=== PATIENT | male | born 1955 | race Caucasian/White ===

== ENCOUNTER 2016-11-05 08:50 | Emergency (ER) | payer MEDICARE ==
[2016-11-05 09:02] VITALS: BP 140/82
== END 2016-11-05 08:55 | disposition left against medical advice (07) ==
LOC: ED 08:50
DX: S21.109A Unspecified open wound of unspecified front wall of thorax without penetration into thoracic cavity, initial encounter (principal); Z53.21 Procedure and treatment not carried out due to patient leaving prior to being seen by health care provider; X58.XXXA Exposure to other specified factors, initial encounter; Y93.89 Activity, other specified; Y92.89 Other specified places as the place of occurrence of the external cause; Y99.8 Other external cause status

== ENCOUNTER 2017-10-06 08:37 | Emergency (ER) | payer MEDICARE ==
[2017-10-06 09:03] VITALS: BP 118/82
[2017-10-06 09:28] LABS: Basophils % (Auto) 0.4 % (0.0-1.8); Eosinophils # (Auto) 0.1 K/mm3 (0.0-0.4); Hematocrit 42.6 % (35.5-45.6); Lymphocytes # (Auto) 1.5 K/mm3 (1.2-5.4); Mean Corpuscular HGB Conc 33 % (32-34); Mean Corpuscular Hemoglobin 28 pg (28-32); Mean Corpuscular Volume 84 fl (84-94); Monocytes # (Auto) 0.6 K/mm3 (0.0-0.8); Platelet Count 293 K/mm3 (140-440)
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
[2017-10-06 09:41] LABS: BUN/Creatinine Ratio 17; Blood Urea Nitrogen 12 mg/dL (9-20); Calcium 10.2 mg/dL (8.4-10.2); Hemolysis Index 8
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
== END 2017-10-06 10:40 | disposition home or self-care (01) ==
LOC: ED 08:37
DX: T81.4XXA Infection following a procedure, initial encounter (principal); M00.862 Arthritis due to other bacteria, left knee; Z96.652 Presence of left artificial knee joint; E11.9 Type 2 diabetes mellitus without complications; J45.909 Unspecified asthma, uncomplicated; M10.9 Gout, unspecified; E78.00 Pure hypercholesterolemia, unspecified
CPT/HCPCS: 36415; 80048; 85025; 99284

== ENCOUNTER 2018-07-25 08:19 | Outpatient (CLI) | payer MEDICARE ==
[2018-07-25 10:54] LABS: Chol/HDL Ratio 5.04 %
== END 2018-07-25 08:20 | disposition home or self-care (01) ==
LOC: LAB 08:19
PROVIDERS: ATTEND Internal Medicine
DX: E66.09 Other obesity due to excess calories (principal); E78.5 Hyperlipidemia, unspecified; I10 Essential (primary) hypertension; J45.909 Unspecified asthma, uncomplicated; R73.9 Hyperglycemia, unspecified
CPT/HCPCS: 36415; 80061; 83036

== ENCOUNTER 2018-12-08 08:10 | Outpatient (CLI) | payer MEDICARE ==
[2018-12-08 10:10] LABS: Chol/HDL Ratio 3.15 %
== END 2018-12-08 08:11 | disposition home or self-care (01) ==
LOC: LAB 08:10
PROVIDERS: ATTEND Internal Medicine
DX: E78.5 Hyperlipidemia, unspecified (principal); R73.03 Prediabetes; I10 Essential (primary) hypertension; J45.909 Unspecified asthma, uncomplicated
CPT/HCPCS: 36415; 80061; 83036

== ENCOUNTER 2021-12-08 08:38 | Outpatient (CLI) | payer MEDICARE | END 2021-12-08 08:39 | disposition home or self-care (01) | LOC: LABHHL 08:38 | PROVIDERS: ATTEND Internal Medicine | DX: R73.03 Prediabetes (principal) | CPT/HCPCS: 36415; 83036 ==